=== PATIENT | male | born 1960 | race Caucasian/White ===

== ENCOUNTER 2016-07-10 04:29 | Emergency (ER) | payer BC ==
[2016-07-10] MEDS ORDERED: AMOX 875 MG/CLAV 125 MG 1 EACH TABLET ONE (05:01)
[2016-07-10] MEDS ORDERED: ACETAMINOPHEN 500 MG TABLET ONE (05:01)
== END 2016-07-10 05:17 | disposition home or self-care (01) ==
LOC: ED 04:29
DX: J01.90 Acute sinusitis, unspecified (principal)
CPT/HCPCS: 87804; 99283 ×2; A9270 ×2